=== PATIENT | female | born 1990 | race Caucasian/White ===

== ENCOUNTER 2016-10-20 11:31 | Observation (INO) | payer OTHER, SELFPAY ==
[~2016-10-20 11:31] MED LIST: ADVIL100 MG; TYLENOL325 MG
[2016-10-20] MEDS ORDERED: PRENA1 CHEW TA1.4 M1 PO (12:26)
== END 2016-10-20 13:00 ==
LOC: LDR 11:31
PROVIDERS: ADMIT Obstetrics & Gynecology Maternal & Fetal Medicine
DX: Z03.71 Encounter for suspected problem with amniotic cavity and membrane ruled out (principal); Z3A.31 31 weeks gestation of pregnancy; Z79.899 Other long term (current) drug therapy; Z98.890 Other specified postprocedural states